=== PATIENT | male | born 1980 | race Caucasian/White ===

== ENCOUNTER 2022-01-13 13:17 | Outpatient (REF) | payer BC, SELFPAY ==
--- NOTE | 2022-01-13 14:56 | MHC.AU.P13 ---
Addendum entered and electronically signed by Lilli Jordan 01/13/22 15:03: *Fluid like sounds (not fluid like signs) Original Note: Thank you for your referral of your patient, Mr. Elias Lopez [place] [facility]. Mr. Lopez was seen today for a hearing test. He reports significant changes in his ability to hear, particularly in the presence of background noise and distance. In addition, he feels that his ears are often plugged as he will occasionally feel pain (L>R) and hear fluid like signs when he manipulates the pressure in his ear. Today's testing revealed normal hearing bilaterally, excellent word recognition in both ears at soft conversational levels, and no signal to noise hearing loss (tested in presence of noise with excellent outcome). Tympanometry revealed normal middle ear compliance and pressures. Eustachian tube functioning did reveal inability to move middle air space to negative pressure with valsalva. Was able to move into excessive positive pressure with toynbee. Discussed how changes in weight, sleep apnea, teeth grinding can all irritate the back of the throat and/or apply additional pressure to the Eustachian tube impacting its ability to function properly and consistently. In the absence of any hearing loss to explain increased difficulty hearing, it was suggested he may want to explore speech, language and cognition evaluation with a speech language pathologist to assess working memory in addition to having an auditory processing evaluation with an supervisor asbestos textile. This would help assess how his executive functioning may or may not be contributing to increased difficulty with communication. I asked him to follow up with you on these findings and recommendations. If you have any questions, please do not hesitate to call. Thank you, Mateo Calloway. Butcher Meat
--- NOTE | 2022-01-13 15:29 | MHC.AU.P13 ---
Thank you for your referral of your patient, Mr. Elias Lopez to [facility]. Mr. Lopez was seen today for a hearing test. He reports significant changes in his ability to hear, particularly in the presence of background noise and distance. In addition, he feels that his ears are often plugged as he will occasionally feel pain (L>R) and hear fluid like signs when he manipulates the pressure in his ear. Today's testing revealed normal hearing bilaterally, excellent word recognition in both ears at soft conversational levels, and no signal to noise hearing loss (tested in presence of noise with excellent outcome). Tympanometry revealed normal middle ear compliance and pressures. Eustachian tube functioning did reveal inability to move middle air space to negative pressure with Toynbee maneuver. Rather it moved forward into positive pressure. Valsalva did not impact any further positive pressure changes than that new state. Discussed how changes in weight, sleep apnea, teeth grinding can all irritate the back of the throat and/or apply additional pressure to the Eustachian tube impacting its ability to function properly and consistently. In the absence of any hearing loss to explain increased difficulty hearing, it was suggested he may want to explore speech, language and cognition evaluation with a speech language pathologist to assess working memory in addition to having an auditory processing evaluation with an cold mill supervisor. This would help assess how his executive functioning may or may not be contributing to increased difficulty with communication. I asked him to follow up with you on these findings and recommendations. If you have any questions, please do not hesitate to call. Thank you, Mateo Calloway. Polytechnic Teacher
--- NOTE | 2022-01-13 15:31 | MHC.AU.P13 ---
Thank you for your referral of your patient, Mr. Elias Lopez to [facility] [place]. Mr. Lopez was seen today for a hearing test. He reports significant changes in his ability to hear, particularly in the presence of background noise and distance. In addition, he feels that his ears are often plugged as he will occasionally feel pain (L>R) and hear fluid like sounds when he manipulates the pressure in his ear. Today's testing revealed normal hearing bilaterally, excellent word recognition in both ears at soft conversational levels, and no signal to noise hearing loss (tested in presence of noise with excellent outcome). Tympanometry revealed normal middle ear compliance and pressures. Eustachian tube functioning did reveal inability to move middle air space to negative pressure with Toynbee maneuver. Rather it moved forward into positive pressure. Valsalva did not impact any further positive pressure changes than that new state. Discussed how changes in weight, sleep apnea, teeth grinding can all irritate the back of the throat and/or apply additional pressure to the Eustachian tube impacting its ability to function properly and consistently. In the absence of any hearing loss to explain increased difficulty hearing, it was suggested he may want to explore speech, language and cognition evaluation with a speech language pathologist to assess working memory in addition to having an auditory processing evaluation with an envelope press operator. This would help assess how his executive functioning may or may not be contributing to increased difficulty with communication. I asked him to follow up with you on these findings and recommendations. If you have any questions, please do not hesitate to call. Thank you, Mateo Calloway. Hot Metal Mixer Operator Helper
== END 2022-01-13 13:18 | disposition home or self-care (01) ==
LOC: HO.SH 13:17
PROVIDERS: Visit Provider Physician Assistant
DX: Z01.118 Encounter for examination of ears and hearing with other abnormal findings (principal); H69.92 Unspecified Eustachian tube disorder, left ear
CPT/HCPCS: 92552; 92553; 92556; 92567; 92700

== ENCOUNTER 2023-09-14 13:32 | Outpatient (AMB) | payer BC, SELFPAY ==
--- NOTE | 2023-09-14 13:52 | MHC.OFFWIV ---
Intake Vital Signs 09/14/23 13:58 09/14/23 14:15 09/14/23 14:31 09/14/23 15:52 Height 5 ft 9.29 in Weight 294 lb 2 oz BMI 43.1 BP 198/120 H 181/119 H 175/105 H 154/112 H Blood Pressure Location Rt brachial Rt brachial Rt brachial Lt brachial Position Sitting Sitting Sitting Sitting Pulse 84 Pulse Source Pulse Oximeter Temp 98 F Temp Source Oral Pulse Oximetry (%) 97 Oxygen Delivery Method Room Air Intake Visit Reasons: Right foot pain Intake Note: Pt was playing volleyball and basketball and hurt his right foot. Pt states it throbs and is painful. Pt is supposed to take blood pressure medication but is not taking them. Patient Tobacco Use Status: Former Tobacco user Allergies No Known Allergies Allergy (Verified 09/14/23 13:55) Do you need a note to return to daycare/school/sports/work: No HPI Right foot pain HPI Details Pt is a 43 y/o male who presents today with complaints of right foot pain. He states that 6 days ago he was playing basketball when he started to experience right foot pain. He did not do anything specifically to the foot. The pain is located on the top of the foot and on the medial aspect. No swelling or bruising. No redness. The pain is worse with walking. He states when he puts pressure on his foot he feels it on the top of his foot and sometimes on the bottom of his foot. No numbness, tingling or weakness. He states that initially after it was bother him for a couple days it seemed like it got better but then he wore the same sneakers as last week and the pain exacerbated. He has a hx of htn and is supposed to be on amlodipine and losartan but has been off of these meds for about 6 months. No cp, sob, or palpitations. No headaches or vision changes. His bp today in the office is 175/105. Repeated blood pressure is 155/112. Follows with Dr. Vasquez. He states that he would not consider going to the ER because he has no symptoms. He did have a stress test last year which he reports as normal. He states that the bank reconciliator did speak with him about the importance of taking his medications. He tells me that he is just generally noncompliant but given how high the blood pressure was today it is making him nervous. He states he does not think he is ever seen at this high. When he 1st walked into the office it was 181/119. [facility] Social History Patient Tobacco Use Status: Former Tobacco user Physical Exam Vital Signs: Last Vital Signs Temp 98 F 09/14/23 13:58 Pulse 84 09/14/23 13:58 BP 175/105 H 09/14/23 14:31 Pulse Ox 97 09/14/23 13:58 Oxygen Delivery Method Room Air 09/14/23 13:58 BMI result Body Mass Index 43.1 Const Orientation/consciousness: patient oriented x3 HEENT Ears: hearing grossly normal bilaterally Neck Thyroid: Thyroid normal Lymphatic: no lymphadenopathy noted Resp Auscultation: clear to auscultation bilaterally Cardio Rate: regular rate Rhythm: regular rhythm Heart sounds: S1 normal heart sound present and S2 normal heart sound present Skin General skin exam: no rashes or lesions noted Neuro General: patient oriented x3, gait normal, no focal motor deficits, CN's II-XI intact bilaterally and deep tendon reflexes 2+ bilaterally Motor exam (neuro): 5/5 motor strength present throughout Extrem Other: There is tenderness to palpation over the dorsum of the right foot with increased discomfort over the dorsal medial aspect proximal to the 1st and 2nd toes. There is some discomfort to palpation on the plantar aspect of the mid foot. DP pulses 2+ bilaterally. Pt is in sandals. Feet appear symmetrical. Good capillary refill. Sensation intact. Office Procedures EKG Details: EKG today in office is normal sinus rhythm at a rate of 81 beats per minute with nonspecific STT wave abnormalities. No prior study to compare. [id number], Complete Assessment & Plan Assessment & Plan (1) Right foot pain: Code(s): M79.671 - Pain in right foot Plan: xr ordered. advised RICE. (2) Hypertensive urgency: Code(s): I16.0 - Hypertensive urgency Plan: He is asymptomatic. EKG today in the office is NSR at a rate of 81 bpm. He was given 0.2 mg of clonidine. His bp went to 148/98. Advised to restart home meds tonight. Follow up with Dr. Vasquez tomorrow or Monday. Check bps at home. Warning signs of hypertension that would require emergent medical treatment were discussed. Orders: Orders XR foot RT min 3V Today M79.671 - Pain in right foot AMB EKG-In Office Today I16.0 - Hypertensive urgency Coding Level of Care Code New Pt Level 4 (93260) Diagnoses Right foot pain M79.671 Hypertensive urgency I16.0 CPT Codes EKG - CPT: 90598-[id number], Complete ([id number])
[2023-09-14 13:58] VITALS: BP 198/120; PULSE 84; TEMP 36.6; O2SAT 97; BMI 43.1
[2023-09-14 14:15] VITALS: BP 181/119
[2023-09-14 14:31] VITALS: BP 175/105
[2023-09-14 15:52] VITALS: BP 154/112
== END 2023-09-14 16:06 | disposition home or self-care (01) ==
PROVIDERS: Visit Provider Physician Assistant
DX: M79.671 Pain in right foot (principal); I16.0 Hypertensive urgency
CPT/HCPCS: 93000; 99204

== ENCOUNTER 2023-09-14 16:47 | Outpatient (REF) | payer BC, SELFPAY ==
--- NOTE | ~2023-09-14 | XR_ITS ---
EXAMINATION: XR FOOT, RIGHT CLINICAL INFORMATION: Pain in right foot, patient states right foot pain since MondayAugust 2023, no injury COMPARISON: None available. TECHNIQUE: AP, lateral, and oblique views of the right foot. FINDINGS: Radiopaque marker placed by technologist to indicate the area of concern as indicated by the patient along the great toe distally. Mild degenerative changes with joint space and hypertrophic change in the first metatarsophalangeal joint. Bone mineralization is normal. XR/XR foot RT min 3V IMPRESSION: 1. Mild degenerative changes in the first metatarsophalangeal joint. 2.
== END 2023-09-14 16:48 | disposition home or self-care (01) ==
LOC: HO.XRAY 16:47
PROVIDERS: PCP Internal Medicine; Visit Provider Physician Assistant
DX: M79.671 Pain in right foot (principal)
CPT/HCPCS: 73630